=== PATIENT | male | born 1970 | race Hispanic/Latino ===

== ENCOUNTER 2019-05-01 04:08 | Emergency (ER) | payer SELFPAY ==
[2019-05-01] MEDS ORDERED: ONDANSETRON 4 MG/2 ML INJ IV ONE ×2 (04:56→06:56)
[2019-05-01] MEDS ORDERED: SODIUM CHLORIDE 0.9% 1000 ML 1,000 ML IV ONE (04:56)
[2019-05-01 05:20] LABS: Basophils # (Auto) 0.1 K/mm3 (0.0-0.1); Eosinophils # (Auto) 0.1 K/mm3 (0.0-0.4); Eosinophils % (Auto) 0.8 % (0.0-4.3); Hematocrit 47.7 % (35.5-45.6); Hemoglobin 16.4 gm/dl (11.8-15.2); Lymphocytes # (Auto) 1.8 K/mm3 (1.2-5.4); Lymphocytes % (Auto) 15.5 % (13.4-35.0); Mean Corpuscular HGB Conc 34 % (32-34); Mean Corpuscular Volume 97 fl (84-94); Monocytes # (Auto) 0.8 K/mm3 (0.0-0.8); Monocytes % (Auto) 6.9 % (0.0-7.3); Platelet Count 379 K/mm3 (140-440); Red Blood Count 4.93 M/mm3 (3.65-5.03); Red Cell Distribution Width 13.2 % (13.2-15.2)
[2019-05-01] MEDS ORDERED: FAMOTIDINE 20 MG/2 ML INJ IV ONE ×2 (05:43→06:09)
[2019-05-01 05:44] LABS: Alanine Aminotransferase 20 units/L (7-56); Albumin 4.8 g/dL (3.9-5); BUN/Creatinine Ratio 12; Blood Urea Nitrogen 14 mg/dL (9-20); Calcium 9.7 mg/dL (8.4-10.2); Hemolysis Index 8
--- NOTE | 2019-05-01 06:30 | Emergency Department Report ---
ED Abdominal Pain HPI - General Chief Complaint: Abdominal Pain Stated Complaint: ABDOMINAL PAIN Time Seen by Provider: 05/01/19 06:29 Source: patient Mode of arrival: Ambulatory Limitations: No Limitations - History of Present Illness Initial Comments: This is a 49 year old male who has had recurrent abdominal pain. Patient states that he has been previously attributed to peptic ulcer disease. As stated history of gallstones. Perhaps he had an episode about 2 years ago and was not admitted. He denies previous abdominal surgery. Complains of discomfort in his epigastric area that radiates to his back. He denies history of pancreatitis or gallstones. Denies fever or chills. He denies chest pain pressure or tightness. He states he had a normal bowel movement yesterday. He is not nauseated at the time of my encounter. MD Complaint: abdominal pain -: Gradual, hour(s) Location: periumbilical, epigastric Radiation: none Migration to: no migration Severity: moderate Quality: aching Consistency: constant Improves With: nothing Worsens With: nothing Associated Symptoms: denies other symptoms, nausea. denies: vomiting, diarrhea, fever - Related Data Previous Rx's Medication Instructions Recorded Last Taken Type HYDROcodone/APAP 10-325 [[place] 1 each PO Q6HR PRN #20 tablet 09/11/14 Unknown Rx 10/325] LORazepam [Ativan] 1 mg PO QHS PRN #10 tab 09/11/14 Unknown Rx Promethazine [Phenergan] 25 mg PO Q6H PRN #12 tablet 09/11/14 Unknown Rx Allergies Allergy/AdvReac Type Severity Reaction Status Date / Time No Known Allergies Allergy Verified 05/01/19 04:09 ED Review of Systems ROS: Stated complaint: ABDOMINAL PAIN Other details as noted in HPI Constitutional: denies: chills, fever Eyes: denies: eye pain, eye discharge, vision change ENT: denies: ear pain, throat pain Respiratory: denies: cough, shortness of breath, wheezing Cardiovascular: denies: chest pain, palpitations Endocrine: no symptoms reported Gastrointestinal: abdominal pain, nausea. denies: vomiting, diarrhea, constipation, hematemesis, melena, hematochezia Genitourinary: denies: urgency, dysuria Musculoskeletal: denies: back pain, joint swelling, arthralgia Skin: denies: rash, lesions Neurological: denies: headache, weakness, paresthesias Psychiatric: denies: anxiety, depression Hematological/Lymphatic: denies: easy bleeding, easy bruising ED Past Medical Hx - Past Medical History Previous Medical History?: Yes Additional medical history: Cholelithiasis - Surgical History Past Surgical History?: No - Social History Smoking Status: Current Every Day Smoker Substance Use Type: None - Medications Home Medications: Home Medications Medication Instructions Recorded Confirmed Last Taken Type HYDROcodone/APAP 10-325 [[place] 1 each PO Q6HR PRN #20 tablet 09/11/14 Unknown R x 10/325] LORazepam [Ativan] 1 mg PO QHS PRN #10 tab 09/11/14 Unknown Rx Promethazine [Phenergan] 25 mg PO Q6H PRN #12 tablet 09/11/14 Unknown Rx ED Physical Exam - General Limitations: No Limitations General appearance: alert, in no apparent distress - Head Head exam: Present: atraumatic, normocephalic - Eye Eye exam: Present: normal appearance - ENT ENT exam: Present: mucous membranes moist - Neck Neck exam: Present: normal inspection - Respiratory Respiratory exam: Present: normal lung sounds bilaterally. Absent: respiratory distress - Cardiovascular Cardiovascular Exam: Present: regular rate, normal rhythm. Absent: systolic murmur, diastolic murmur, rubs, gallop - GI/Abdominal GI/Abdominal exam: Present: soft, tenderness, normal bowel sounds. Absent: distended, guarding, rebound, rigid - Rectal Rectal exam: Present: deferred - Extremities Exam Extremities exam: Present: normal inspection - Back Exam Back exam: Present: normal inspection - Neurological Exam Neurological exam: Present: alert, oriented X3, CN II-XII intact. Absent: motor sensory deficit - Psychiatric Psychiatric exam: Present: normal affect, normal mood - Skin Skin exam: Present: warm, dry, intact, normal color. Absent: rash ED Course Vital Signs 05/01/19 05/01/19 05/01/19 04:13 05:18 06:00 Temperature 98.6 F Pulse Rate 131 H Respiratory 18 Rate Blood Pressure 154/96 141/78 Blood Pressure [Left] O2 Sat by Pulse 100 100 100 Oximetry 05/01/19 05/01/19 05/01/19 08:15 10:14 13:00 Temperature Pulse Rate 108 H 102 H 77 Respiratory 17 14 Rate Blood Pressure Blood Pressure 123/75 125/78 103/56 [Left] O2 Sat by Pulse 100 99 100 Oximetry - Reevaluation(s) Reevaluation #1: She was found to have a cystoscopy but improving lactic acidosis. His abdominal pelvic CT showed nothing specific. His case was explained to Dr. aWde ospitalist who came to admit the patient. The patient has declined admission. I explained to both he and his the differential diagnosis for lactic acidosis due to include various abdominal processes and systemic illness that I can be life-threatening. Despite this the patient is leaving. He does feel better at the time he left. He is fully ambulatory. He appears to be in no distress. He has full mental capacity to decline admission. He will be signed out AMA. 05/01/19 14:45 ED Medical Decision Making - Lab Data Result diagrams: 05/01/19 04:39 05/01/19 04:39 Laboratory Results - last 24 hr 05/01/19 05/01/19 04:39 04:39 WBC 11.8 H RBC 4.93 Hgb 16.4 H Hct 47.7 H MCV 97 H MCH 33 H MCHC 34 RDW 13.2 Plt Count 379 Lymph % (Auto) 15.5 [place] % (Auto) 6.9 Eos % (Auto) 0.8 Baso % (Auto) 1.0 Lymph # 1.8 [place] # 0.8 Eos # 0.1 Baso # 0.1 Seg Neutrophils % 75.8 H Seg Neutrophils # 9.0 H Sodium 141 Potassium 3.7 Chloride 99.9 Carbon Dioxide 24 Anion Gap 21 BUN 14 Creatinine 1.2 Estimated GFR > 60 BUN/Creatinine Ratio 12 Glucose 104 H Calcium 9.7 Total Bilirubin 0.20 AST 14 ALT 20 Alkaline Phosphatase 67 Total Protein 7.8 Albumin 4.8 Albumin/Globulin Ratio 1.6 Lipase 45 - Radiology Data Radiology results: report reviewed Critical care attestation.: If time is entered above; I have spent that time in minutes in the direct care of this critically ill patient, excluding procedure time. ED Disposition Clinical Impression: Abdominal pain Qualifiers: Abdominal location: epigastric Qualified Code(s): R10.13 - Epigastric pain Disposition: LEFT AGAINST MED ADVICE Is pt being admited?: No Does the pt Need Aspirin: No Condition: Stable Instructions: Abdominal Pain (ED) Additional Instructions: Admission was recommended. Return as desired for further care and evaluation. Close follow-up with your physicians is also indicated. Referrals: PRIMARY CARE, [Primary Care Provider] - [facility] Forms: AMA Form Time of Disposition: 14:48
[2019-05-01 06:38] LABS: Bilirubin,Urine NEG (Negative); Blood,Urine NEG (Negative); Color,Urine Yellow (Yellow); Mucus,Urine FEW /HPF; Protein,Urine <15 mg/dL mg/dL (Negative); Urobilinogen,Urine < 2.0 mg/dL (<2.0)
[2019-05-01] MEDS ORDERED: LORazepam 2 MG/ML VIAL IV ONE (06:56)
[2019-05-01] MEDS ORDERED: MORPHINE 2 MG/1 ML INJ IV ONE (06:56)
[2019-05-01] MEDS ORDERED: PIPERACIL/TAZOBACTA 4.5/NS 100 4.5 GM/100 ML VIAL IV ONE (06:56)
[2019-05-01] MEDS ORDERED: PANTOPRAZOLE 40 MG INJ IV ONE (06:56)
[2019-05-01 07:57] LABS: INR 0.99 (0.87-1.13)
[2019-05-01 07:58] LABS: Partial Thromboplastin Time 27.2 Sec. (24.2-36.6)
[2019-05-01 08:05] LABS: Creatine Kinase MB 1.5 ng/mL (0.0-4.0)
--- NOTE | 2019-05-01 09:04 | Cat Scan Report ---
CT ABDOMEN AND PELVIS WITH CONTRAST INDICATION / CLINICAL INFORMATION: epigastric pain, elevated WBC. TECHNIQUE: Axial CT images were obtained through the abdomen and pelvis after 100 mL Omnipaque [address] scans at this location are performed using CT dose reduction for [place] by means of automated exposure control. COMPARISON: None available. FINDINGS: LOWER CHEST: No significant abnormality. LIVER: No significant abnormality. BILIARY SYSTEM: No significant abnormality. PANCREAS: No significant abnormality. SPLEEN: No significant abnormality. ADRENALS: No significant abnormality. KIDNEYS and URETERS: No significant abnormality. STOMACH / BOWEL: No significant abnormality. Appendix is normal. PERITONEUM: No free fluid. No free air. No fluid collection. LYMPH NODES: No adenopathy. VASCULAR STRUCTURES: No significant abnormality. URINARY BLADDER: No significant abnormality. REPRODUCTIVE ORGANS: No significant abnormality. ADDITIONAL FINDINGS: None. SKELETAL SYSTEM: No significant abnormality. IMPRESSION: No significant abnormality. Signer Name: Mic Rodriguez MD Signed: 05/01/2019 9:00 AM Workstation Name: [id number]
[2019-05-01 13:01] VITALS: BP 103/56
== END 2019-05-01 15:02 | disposition left against medical advice (07) ==
LOC: ED 04:08
DX: R10.33 Periumbilical pain (principal); R10.13 Epigastric pain; R11.2 Nausea with vomiting, unspecified; F17.200 Nicotine dependence, unspecified, uncomplicated; Z79.899 Other long term (current) drug therapy
CPT/HCPCS: 36415; 74177; 80053; 81001; 82140; 82550; 82553; 83690; 83735; 83880; 84484; 85025; 85610; 85730; 87040; 93005; 93010; 96361; 96365; 96375; 96376; 99284; C9113; J2060; J2270; J2405; J2543; J7030; Q9967

== ENCOUNTER → 2019-08-31 21:36 | Emergency (ER) | payer SELFPAY | END | disposition left against medical advice (07) | LOC: ED 21:36 | DX: R10.9 Unspecified abdominal pain (principal); Z53.21 Procedure and treatment not carried out due to patient leaving prior to being seen by health care provider ==